=== PATIENT | female | born 1995 | race Caucasian/White ===

== ENCOUNTER 2016-10-10 07:35 | Inpatient (IN) | payer OTHER ==
[~2016-10-10] VITALS: Ht 160 cm; Wt 82.1 kg
[~2016-10-10 07:35] MED LIST: IBUPROFEN600 MG PO
[2016-10-10 08:32] LABS: HEMOGLOBIN 12.4 gm/dl (12.3-15.3); RED BLOOD COUNT 4.6 M/UL (4.00-5.10); WHITE BLOOD COUNT 4.5 K/UL (4.5-11.0)
[2016-10-10 08:59] LABS: BUN/CREATININE RATIO 15 (0-10)
[2016-10-11 06:17] LABS: HEMOGLOBIN 11.8 gm/dl (12.3-15.3); RED BLOOD COUNT 4.43 M/UL (4.00-5.10); WHITE BLOOD COUNT 3.4 K/UL (4.5-11.0)
[2016-10-11 06:33] LABS: BUN/CREATININE RATIO 13 (0-10)
[2016-10-12 05:14] LABS: HEMOGLOBIN 11.3 gm/dl (12.3-15.3); RED BLOOD COUNT 4.15 M/UL (4.00-5.10); WHITE BLOOD COUNT 3.9 K/UL (4.5-11.0)
[2016-10-12 05:48] LABS: BUN/CREATININE RATIO 12 (0-10)
[2016-10-13 06:44] LABS: HEMOGLOBIN 10.8 gm/dl (12.3-15.3); RED BLOOD COUNT 3.98 M/UL (4.00-5.10)
[2016-10-13 06:45] LABS: WHITE BLOOD COUNT 5.2 K/UL (4.5-11.0)
[2016-10-13 07:20] LABS: BUN/CREATININE RATIO 5 (0-10)
[2016-10-13] MEDS ORDERED: LORTAB 7.5-3251 EACH PO (15:24)
[2016-10-13] MEDS ORDERED: SENOKOT-S TABL1 EACH PO (15:25)
== END 2016-10-13 15:51 | disposition home or self-care (01) | DRG 418 ==
LOC: ER1 07:35 → MED SURG 4 11:48 → ZEROF 11:48 → MED SURG 4 15:15
PROVIDERS: Emergency Medicine; Internal Medicine Gastroenterology; ADMIT Internal Medicine Infectious Disease
PROC: 0FC98ZZ Extirpation of Matter from Common Bile Duct, Via Natural or Artificial Opening Endoscopic (ICD-10-PCS; principal; 2016-10-11 13:45)
PROC: 0FT44ZZ Resection of Gallbladder, Percutaneous Endoscopic Approach (ICD-10-PCS; 2016-10-12)
DX: K80.63 Calculus of gallbladder and bile duct with acute cholecystitis with obstruction (principal); R17 Unspecified jaundice; R00.1 Bradycardia, unspecified; E66.9 Obesity, unspecified; K21.9 Gastro-esophageal reflux disease without esophagitis; E87.6 Hypokalemia; Z68.32 Body mass index [BMI] 32.0-32.9, adult
CPT/HCPCS: 36415; 74181; 74330; 76705; 80053; 80076; 81001; 82150; 83690; 84439; 84443; 84484; 84703; 85025; 85027; 85610; 96361; 96365; 96375; 99285; C2617; J0171; J0295; J1100; J1335; J1885; J2250; J2270; J2405; J2710; J3010; J7030; J7040; J7050; J7120; Q9962

== ENCOUNTER → 2016-10-15 | Outpatient (CLI) | payer OTHER ==
[~2016-10-15] MED LIST changes: +LORTAB 7.5-3251 EACH PO; +SENOKOT-S TABL1 EACH PO
== END ==
LOC: LAB 16:43
DX: K80.20 Calculus of gallbladder without cholecystitis without obstruction (principal); K80.70 Calculus of gallbladder and bile duct without cholecystitis without obstruction
CPT/HCPCS: 36415; 80076